=== PATIENT | female | born 1930 | race Caucasian/White ===

== ENCOUNTER 2020-02-04 07:57 | Inpatient (IN) ==
[2020-02-04] MEDS ORDERED: Morphine 4 MG/ML VIAL (1 ml) IV ONE (08:19)
[2020-02-04] MEDS ORDERED: HYDROcodone/ACETAMIN 5/325 mg TAB PO ONE (08:31)
[2020-02-04 15:06] LABS: Urine Appearance Clear; Urine Bilirubin Negative (Negative); Urine Blood Negative (Negative); Urine Color Yellow; Urine Glucose Negative (Negative); Urine Ketones Negative (Negative); Urine Nitrite Negative (Negative); Urine Protein Negative (Negative); Urine Urobilinogen Negative (Negative)
[2020-02-04] MEDS: Morphine ORAL CONCENTRATE 5 MG/0.25 ML ORAL.SYRIN SL PRN (15:10)
[2020-02-05] MEDS: Morphine ORAL CONCENTRATE 5 MG/0.25 ML ORAL.SYRIN SL PRN ×2 (00:06→20:43)
[2020-02-05 07:40] VITALS: BP 113/55
[2020-02-06] MEDS: Morphine ORAL CONCENTRATE 5 MG/0.25 ML ORAL.SYRIN SL PRN ×2 (01:32→22:53)
[2020-02-07] MEDS: Morphine ORAL CONCENTRATE 5 MG/0.25 ML ORAL.SYRIN SL PRN (20:30)
[2020-02-08] MEDS: Morphine ORAL CONCENTRATE 5 MG/0.25 ML ORAL.SYRIN SL PRN (10:19)
== END 2020-02-08 11:15 | DRG 340 ==
LOC: ED 07:57 → MED 07:57
PROVIDERS: ADMIT Internal Medicine; ATTEND Internal Medicine